=== PATIENT | male | born 1990 | race Caucasian/White ===

== ENCOUNTER 2020-05-08 14:53 | Emergency (ER) | payer BC, OTHER ==
[~2020-05-08 14:53] MED LIST: Iopamidol 370 76% 100 ML VIAL ONE
[2020-05-08] MEDS ORDERED: Sodium Chloride 0.9% 1,000 ML ONE ×2 (15:13→16:18)
[2020-05-08] MEDS ORDERED: Ondansetron PF 4 MG/2 ML Vial ONE ×2 (15:13→16:18)
[2020-05-08 15:37] LABS: #Basophils 0.1 thou/uL (0.0-0.2); #Monocytes 0.9 thou/uL (0.11-0.59); #Neutrophils 15.3 thou/uL (1.40-6.50); %Basophils 0.6 % (0.0-1.0); %Eosinophils 0.1 % (0.0-10.0); %Lymphocytes 10.7 % (21.0-51.0); %Neutrophils 83.6 % (42.0-75.0); Hemoglobin 17.1 g/dL (14.0-18.0); Mean Corpuscular HGB CONC 32.4 g/dL (32.0-36.0); Mean Corpuscular Hemoglobin 29.4 pg (27.0-31.0); Mean Corpuscular Volume 90.7 fL (78.0-98.0); Mean Platelet Volume 10.1 fL (7.4-10.4); Platelet Count 209 thou/uL (130-400); RBC Distribution Width 10.8 % (11.5-14.5); Red Blood Cell (RBC) Count 5.81 mill/uL (4.70-6.10); White Blood Cell (WBC) Count 18.3 thou/uL (4.8-10.8)
[2020-05-08 15:52] LABS: ALT (SGPT) 37 U/L (8-55); AST (SGOT) 40 U/L (5-34); Albumin 5.6 g/dL (3.5-5.0); Alkaline Phosphatase 87 U/L (40-110); Anion Gap 24 mmol/L (10-20); BUN (Urea Nitrogen) 18 mg/dL (8.9-20.6); Bilirubin, Total 0.9 mg/dL (0.2-1.2); Calc. Creatinine Clearance 0 mL/min (70-130); Calcium 10.6 mg/dL (7.8-10.44); Carbon Dioxide 21 mmol/L (22-29); Chloride 100 mmol/L (98-107); Estimated GFR-MDRD 75; Globulin 3.4 g/dL (2.4-3.5); Glucose 136 mg/dL (70-105); Potassium 4.2 mmol/L (3.5-5.1); Sodium 141 mmol/L (136-145)
[2020-05-08 16:07] LABS: Lipase Less than 4 U/L (8-78)
[2020-05-08] MEDS ORDERED: Promethazine HCl 25 MG/ML VIAL ONE (16:35)
--- NOTE | 2020-05-08 17:40 | CT ---
CT abdomen and pelvis with IV contrast HISTORY: Nausea vomiting. FINDINGS: The lung bases are clear. Tiny nonspecific low-density lesion within the dome of the medial segment left liver lobe likely represents a cyst. Solid organs are intact. No evidence of bowel obstruction. Minimal stranding within the right paracolic fat is present with minimal circumferential wall thicken ing of the right colon. No focal fluid collections. Urinary bladder has normal appearance. IMPRESSION : Very subtle inflamed appearance of the right colon and adjacent retroperitoneal fat. No complication evident. Clinical correlation regarding other signs and symptoms of right sided colitis (infection?) Is required.
== END 2020-05-08 18:21 | disposition home or self-care (01) ==
LOC: NAV ERS 14:53
DX: D72.829 Elevated white blood cell count, unspecified (principal); R11.2 Nausea with vomiting, unspecified
CPT/HCPCS: 74177; 80053; 83690; 85025; 96365; 96375; 96376; J2405; J2550; J7050; Q9967